=== PATIENT | male | born 1995 | race Two or more races ===

== ENCOUNTER 2016-08-29 02:01 | Emergency (ER) | payer OTHER ==
[~2016-08-29] VITALS: Ht 175.3 cm; Wt 66.8 kg
[2016-08-29 02:02] VITALS: BP 135/77
[2016-08-29] MEDS ORDERED: ACETAMINOPHEN 325 MG TABLET ONE (02:24)
[2016-08-29] MEDS ORDERED: ACETAMINOPHEN 325 MG TABLET PO ONE (02:30)
== END 2016-08-29 03:01 | disposition home or self-care (01) ==
LOC: ED 02:55
DX: S62.522A Displaced fracture of distal phalanx of left thumb, initial encounter for closed fracture (principal); W19.XXXA Unspecified fall, initial encounter; Y93.89 Activity, other specified; Y92.098 Other place in other non-institutional residence as the place of occurrence of the external cause; Y99.8 Other external cause status
CPT/HCPCS: 29125

== ENCOUNTER 2016-09-16 05:29 | Emergency (ER) | payer OTHER ==
[~2016-09-16] VITALS: Ht 175.3 cm; Wt 63.8 kg
[2016-09-16] MEDS ORDERED: SODIUM CHLORIDE 0.9% 1,000 ML IV ONE (05:57)
[2016-09-16] MEDS ORDERED: SODIUM CHLORIDE 0.9% 1,000ML IVBOLUS ONE (06:00)
[2016-09-16] MEDS ORDERED: ONDANSETRON 2MG/ML, 2ML IVPush ONE (06:00)
[2016-09-16] MEDS ORDERED: SODIUM CHLORIDE FLUSH 10ML SYR IVF ONE (06:00)
[2016-09-16] MEDS ORDERED: ONDANSETRON 2MG/ML, 2ML ONE (06:16)
[2016-09-16 06:31] LABS: BLOOD UREA NITROGEN 13 mg/dL (7-18)
[2016-09-16 07:37] VITALS: BP 125/67
== END 2016-09-16 07:53 | disposition home or self-care (01) ==
LOC: ED 07:20
DX: B34.9 Viral infection, unspecified (principal)
CPT/HCPCS: 36415; 71020; 80048; 81001; 82040; 85025; 87081; 87324; 87880; 89055; 96361; 96374; 99285; J2405; J7030